=== PATIENT | male | born 1965 | race Two or more races ===

== ENCOUNTER 2018-07-01 16:15 | Emergency (ER) | payer OTHER, MEDICAID ==
[~2018-07-01] VITALS: Ht 172.7 cm; Wt 97.0 kg
[2018-07-01 20:34] VITALS: BP 160/112
== END 2018-07-01 20:35 | disposition home or self-care (01) ==
LOC: ER 16:15
DX: H61.23 Impacted cerumen, bilateral (principal); I10 Essential (primary) hypertension
CPT/HCPCS: 69209; 99282

== ENCOUNTER 2018-10-29 13:09 | Inpatient (IN) | payer MEDICAID, OTHER ==
[~2018-10-29] VITALS: Ht 170.2 cm; Wt 94.8 kg
[2018-10-29] MEDS ORDERED: CLONIDINE 0.2MG TABLET PO ONE (15:00)
[2018-10-29] MEDS ORDERED: MECLIZINE 25MG TABLET PO ONE (15:00)
[2018-10-29 15:27] LABS: BASOPHILS % 0.3 % (0.0-2.0); EOSINOPHILS % 0.3 % (0.0-5.0); HEMATOCRIT. 45.9 % (42.0-52.0); HEMOGLOBIN. 15.6 g/dL (14.0-18.0); LYMPHOCYTES % 19.5 % (20.0-50.0); MEAN CORPUSCULAR HEMOGLOBIN 30.3 pg (28.0-32.0); MEAN CORPUSCULAR VOLUME 89.4 fL (80.0-94.0); MEAN PLATELET VOLUME 10.5 fl (7.4-10.4); MONOCYTES % 4.5 % (2.0-8.0); NEUTROPHILS % 75.4 % (40.0-76.0); PLATELET 81 x1000/uL (130-400); RED BLOOD CELL COUNT 5.14 mill/uL (4.7-6.1); RED CELL DISTRIBUTION WIDTH 12.8 % (11.6-14.6)
[2018-10-29 15:32] LABS: CHLORIDE 102 mEq/L (98-107)
[2018-10-29 15:36] LABS: INR 1.1; PROTHROMBIN TIME 11.2 sec (9.1-11.1)
[2018-10-29] MEDS ORDERED: POTASSIUM CHLORIDE 20MEQ TABLET SR PO ONE (17:15)
[2018-10-29] MEDS ORDERED: MECLIZINE 25MG TABLET PO PRN (18:00)
[2018-10-29] MEDS ORDERED: ASPIRIN 325MG EC TABLET PO ONE (18:00)
[2018-10-29] MEDS ORDERED: ONDANSETRON HCL 4MG/2ML INJ IV PRN (18:00)
[2018-10-29] MEDS ORDERED: ACETAMINOPHEN 325MG TABLET PO PRN (18:00)
[2018-10-29 21:20] VITALS: BP 133/66
[2018-10-29 21:52] VITALS: BP 133/76
[2018-10-29] MEDS ORDERED: LISI-604 PO (22:00)
[2018-10-29] MEDS ORDERED: HYDR25TA PO (22:00)
[2018-10-29] MEDS ORDERED: INFLUENZA VIRUS VACCINE(AFLURIA) 0.5ML SYR IM ONE (22:15)
[2018-10-29] MEDS ORDERED: PNEUMOCOCCAL 23-VAL P-SAC VAC 0.5 ML IM ONE (22:15)
[2018-10-30] VITALS (7 sets, daily range): BP systolic 118–190; BP diastolic 78–123
[2018-10-30 00:17] LABS: CLARITY URINE CLEAR (CLEAR); COLOR URINE YELLOW (YELLOW); KETONES URINE NEGATIVE (NEGATIVE); LEUKOCYTE ESTERASE URINE NEGATIVE (NEGATIVE); NITRITE URINE NEGATIVE (NEGATIVE); OCCULT BLOOD URINE NEGATIVE (NEGATIVE); PH URINE 6.5 (4.5-8.0); PROTEIN URINE NEGATIVE (NEGATIVE); SPECIFIC GRAVITY URINE 1.016 (1.005-1.030); UROBILINOGEN URINE 0.2 E.U./dL (0.2-1.0)
[2018-10-30] MEDS: LISINOPRIL 40MG TABLET PO SCH ×2 (00:17→09:11)
[2018-10-30 00:44] LABS: PHENCYCLIDINE URINE SCREEN NEGATIVE (NEGATIVE)
[2018-10-30 00:45] LABS: *AMPHETAMINES SCREEN URINE NEGATIVE (NEGATIVE); *BARBITURATES SCREEN URINE NEGATIVE (NEGATIVE); *BENZODIAZEPINES SCREEN URINE NEGATIVE (NEGATIVE); *COCAINE SCREEN URINE NEGATIVE (NEGATIVE); CANNABINOID URINE SCREEN NEGATIVE (NEGATIVE); METHADONE URINE SCREEN NEGATIVE (NEGATIVE); OPIATES URINE SCREEN NEGATIVE (NEGATIVE)
[2018-10-30 06:57] LABS: BASOPHILS % 0.3 % (0.0-2.0); EOSINOPHILS % 2.3 % (0.0-5.0); HEMATOCRIT. 43.7 % (42.0-52.0); HEMOGLOBIN. 14.7 g/dL (14.0-18.0); LYMPHOCYTES % 33.3 % (20.0-50.0); MEAN CORPUSCULAR HEMOGLOBIN 30.3 pg (28.0-32.0); MEAN CORPUSCULAR VOLUME 90.3 fL (80.0-94.0); MEAN PLATELET VOLUME 10.3 fl (7.4-10.4); MONOCYTES % 8.7 % (2.0-8.0); NEUTROPHILS % 55.4 % (40.0-76.0); PLATELET 77 x1000/uL (130-400); RED BLOOD CELL COUNT 4.84 mill/uL (4.7-6.1); RED CELL DISTRIBUTION WIDTH 13.1 % (11.6-14.6)
[2018-10-30 07:30] LABS: CHLORIDE 103 mEq/L (98-107)
[2018-10-30] MEDS ORDERED: ASPIRIN 81MG TABLET PO SCH (09:00)
[2018-10-30] MEDS: CLONIDINE 0.1MG TABLET PO PRN ×2 (09:11→17:08)
[2018-10-30] MEDS ORDERED: POTASSIUM CHLORIDE 20MEQ TABLET SR PO NR (10:45)
[2018-10-30 19:43] LABS: ETHANOL BLOOD < 10 mg/dL
[2018-10-30 19:47] LABS: LDL CHOLESTEROL 99 mg/dL (5-100)
[2018-10-30 19:49] LABS: HDL CHOLESTEROL 24 mg/dL (40-59); T4 FREE 0.88 ng/dL (0.76-1.46)
[2018-10-30] MEDS ORDERED: IOHEXOL-350 100 ML BOTTLE ONE (19:56)
[2018-10-30 20:01] LABS: FOLIC ACID (FOLATE) SERUM 15.2 ng/mL (>5.38)
[2018-10-30] MEDS: ATORVASTATIN CALCIUM 20MG TABLET PO SCH (21:02)
[2018-10-31] VITALS: BP 131/74
[2018-10-31 04:00] VITALS: BP_SYST 144; BP_SYST 159; BP_SYST 173; BP_DIAS 103; BP_DIAS 87; BP_DIAS 91
[2018-10-31 08:00] VITALS: BP_SYST 161; BP_SYST 184; BP_SYST 187; BP_DIAS 103; BP_DIAS 107; BP_DIAS 94
[2018-10-31] MEDS ORDERED: CLOPIDOGREL 75MG TABLET PO SCH (09:00)
[2018-10-31] MEDS: CLONIDINE 0.1MG TABLET PO PRN ×2 (09:22→16:23)
[2018-10-31] MEDS: LISINOPRIL 40MG TABLET PO SCH (09:22)
[2018-10-31] MEDS: AMLODIPINE 5MG TABLET PO SCH ×2 (11:16→20:48)
[2018-10-31 11:29] LABS: BASOPHILS % 0.3 % (0.0-2.0); EOSINOPHILS % 1.8 % (0.0-5.0); HEMATOCRIT. 45.4 % (42.0-52.0); HEMOGLOBIN. 15.3 g/dL (14.0-18.0); MEAN CORPUSCULAR HEMOGLOBIN 30.3 pg (28.0-32.0); MEAN CORPUSCULAR VOLUME 89.7 fL (80.0-94.0); MEAN PLATELET VOLUME 9.9 fl (7.4-10.4); MONOCYTES % 7.1 % (2.0-8.0); NEUTROPHILS % 63.8 % (40.0-76.0); PLATELET 88 x1000/uL (130-400); RED BLOOD CELL COUNT 5.06 mill/uL (4.7-6.1); RED CELL DISTRIBUTION WIDTH 13.1 % (11.6-14.6)
[2018-10-31 11:35] LABS: CHLORIDE 108 mEq/L (98-107)
[2018-10-31 12:00] VITALS: BP 148/90
[2018-10-31] MEDS ORDERED: CYANOCOBALAMIN 1000MCG/ML VIAL IM NR (15:15)
[2018-10-31 16:00] VITALS: BP 167/93
[2018-10-31 20:00] VITALS: BP_SYST 128; BP_SYST 167; BP_SYST 186; BP_DIAS 111; BP_DIAS 124; BP_DIAS 96
[2018-10-31] MEDS: ATORVASTATIN CALCIUM 20MG TABLET PO SCH (20:48)
[2018-10-31] MEDS: HYDRALAZINE HCL 50MG TABLET PO SCH (20:48)
[2018-11-01] VITALS (7 sets, daily range): BP systolic 134–182; BP diastolic 81–125
[2018-11-01 07:00] LABS: CHLORIDE 108 mEq/L (98-107)
[2018-11-01 07:16] LABS: CREATINE KINASE 87 IU/L (39-308)
[2018-11-01 07:19] LABS: BASOPHILS % 0.4 % (0.0-2.0); EOSINOPHILS % 3.5 % (0.0-5.0); HEMATOCRIT. 43.4 % (42.0-52.0); MEAN CORPUSCULAR HEMOGLOBIN 30.9 pg (28.0-32.0); MEAN CORPUSCULAR VOLUME 89.3 fL (80.0-94.0); MEAN PLATELET VOLUME 10.5 fl (7.4-10.4); MONOCYTES % 9.1 % (2.0-8.0); PLATELET 82 x1000/uL (130-400); RED BLOOD CELL COUNT 4.86 mill/uL (4.7-6.1); RED CELL DISTRIBUTION WIDTH 12.6 % (11.6-14.6)
[2018-11-01 07:23] LABS: CREATINE KINASE MB FRACTION 1.7 ng/mL (0.5-3.6)
[2018-11-01] MEDS: AMLODIPINE 5MG TABLET PO SCH ×2 (08:59→21:29)
[2018-11-01] MEDS: LISINOPRIL 40MG TABLET PO SCH (09:00)
[2018-11-01] MEDS: HYDRALAZINE HCL 50MG TABLET PO SCH (09:00)
[2018-11-01] MEDS: CLONIDINE 0.1MG TABLET PO PRN (11:52)
[2018-11-01] MEDS: CLOPIDOGREL 75MG TABLET PO SCH (18:01)
[2018-11-01] MEDS: HYDRALAZINE HCL 100MG TABLET PO SCH (21:29)
[2018-11-01] MEDS: ATORVASTATIN CALCIUM 20MG TABLET PO SCH (21:29)
[2018-11-02] VITALS: BP_SYST 118; BP_SYST 135; BP_SYST 137; BP_DIAS 79; BP_DIAS 84; BP_DIAS 89
[2018-11-02 04:00] VITALS: BP 127/82
[2018-11-02 07:42] LABS: BASOPHILS % 0.3 % (0.0-2.0); EOSINOPHILS % 3.9 % (0.0-5.0); HEMATOCRIT. 42.6 % (42.0-52.0); HEMOGLOBIN. 14.3 g/dL (14.0-18.0); LYMPHOCYTES % 35.1 % (20.0-50.0); MEAN CORPUSCULAR HEMOGLOBIN 30.4 pg (28.0-32.0); MEAN CORPUSCULAR VOLUME 90.5 fL (80.0-94.0); MEAN PLATELET VOLUME 10.2 fl (7.4-10.4); NEUTROPHILS % 50.7 % (40.0-76.0); PLATELET 80 x1000/uL (130-400); RED BLOOD CELL COUNT 4.71 mill/uL (4.7-6.1); RED CELL DISTRIBUTION WIDTH 13.1 % (11.6-14.6)
[2018-11-02 08:00] VITALS: BP 125/92
[2018-11-02 08:02] LABS: CHLORIDE 106 mEq/L (98-107)
[2018-11-02] MEDS: CLOPIDOGREL 75MG TABLET PO SCH (09:34)
[2018-11-02] MEDS: AMLODIPINE 5MG TABLET PO SCH (09:34)
[2018-11-02] MEDS: HYDRALAZINE HCL 100MG TABLET PO SCH (09:34)
[2018-11-02] MEDS: LISINOPRIL 40MG TABLET PO SCH (09:35)
[2018-11-02 12:00] VITALS: BP 154/88
[2018-11-02 13:06] LABS: ANTI-CARDIOLIPIN AB IGA < 9 APL U/mL (0-11); ANTI-CARDIOLIPIN AB IGG < 9 GPL U/mL (0-14); ANTI-CARDIOLIPIN AB IGM < 9 MPL U/mL (0-12)
[2018-11-02 16:00] VITALS: BP 145/89
[2018-11-02 17:22] VITALS: BP 145/80
[2018-11-03 04:14] LABS: ANTI-THROMBIN ACTIVITY 85 % (75-135); DRVVT LA 32.4 sec (0.0-47.0); LUPUS ANTICOAG INTERPRETATION Comment: (.); PROTEIN C FUNCTIONAL 97 % (73-180); PTT-LA 31.1 sec (0.0-51.9)
== END 2018-11-02 19:25 | disposition short-term general hospital (02) | DRG 45 ==
LOC: ER 13:09 → 5WST 17:56 → ENRESERV 20:01
PROVIDERS: ADMIT Internal Medicine; ATTEND Internal Medicine
DX: I63.9 Cerebral infarction, unspecified (principal); D69.3 Immune thrombocytopenic purpura; D69.6 Thrombocytopenia, unspecified; I11.9 Hypertensive heart disease without heart failure; G81.91 Hemiplegia, unspecified affecting right dominant side; R13.10 Dysphagia, unspecified; R47.01 Aphasia; E78.00 Pure hypercholesterolemia, unspecified; H55.00 Unspecified nystagmus; I45.10 Unspecified right bundle-branch block; E87.6 Hypokalemia; E66.9 Obesity, unspecified; E78.5 Hyperlipidemia, unspecified; I16.0 Hypertensive urgency; H51.8 Other specified disorders of binocular movement; H53.2 Diplopia; H54.7 Unspecified visual loss; H93.19 Tinnitus, unspecified ear; R29.810 Facial weakness; Z68.32 Body mass index [BMI] 32.0-32.9, adult; Z91.81 History of falling
CPT/HCPCS: 36415; 70496; 70498; 70551; 71045; 80048; 80061; 80305; 80320; 81400; 81403; 81407; 81479; 82550; 82553; 82607; 82746; 83036; 83735; 83880; 84439; 84443; 84481; 84484; 85300; 85303; 85306; 85613; 85732; 86147; 90732; 93005; 93306; 93880; 93970; 97112; 97162; 97166; 97530; 97535; 99285; J3420; J8597; Q9967; G0480

== ENCOUNTER 2019-01-15 08:33 | Emergency (ER) | payer MEDICAID ==
[~2019-01-15] VITALS: Ht 172.7 cm; Wt 88.0 kg
[~2019-01-15 08:33] MED LIST: HYDR25TA PO; LISI-604 PO
[2019-01-15 09:05] VITALS: BP 161/115
[2019-01-15] MEDS ORDERED: HYDROCODONE/ACETAMINOPHEN 5/325MG TABLET PO ONE (11:00)
== END 2019-01-15 11:24 | disposition home or self-care (01) ==
LOC: ER 08:33
DX: S83.242A Other tear of medial meniscus, current injury, left knee, initial encounter (principal); I10 Essential (primary) hypertension; E03.9 Hypothyroidism, unspecified; Z79.01 Long term (current) use of anticoagulants; Y92.018 Other place in single-family (private) house as the place of occurrence of the external cause; X50.1XXA Overexertion from prolonged static or awkward postures, initial encounter; Z79.899 Other long term (current) drug therapy; Y99.8 Other external cause status; Z86.73 Personal history of transient ischemic attack (TIA), and cerebral infarction without residual deficits; Y93.01 Activity, walking, marching and hiking
CPT/HCPCS: 73562; 99283

== ENCOUNTER 2020-03-23 10:02 | Inpatient (IN) | payer MEDICAID ==
[~2020-03-23] VITALS: Ht 172.7 cm; Wt 95.3 kg
[2020-03-23] MEDS ORDERED: ACETAMINOPHEN WITH CODEINE 300/30MG TABLET PO ONE (10:30)
[2020-03-23 11:28] LABS: BASOPHILS % 0.4 % (0.0-2.0); HEMATOCRIT. 37.5 % (42.0-52.0); HEMOGLOBIN. 12.8 g/dL (14.0-18.0); LYMPHOCYTES % 24.3 % (20.0-50.0); MEAN CORPUSCULAR HEMOGLOBIN 30.2 pg (28.0-32.0); MEAN CORPUSCULAR VOLUME 88.4 fL (80.0-94.0); MEAN PLATELET VOLUME 8.9 fl (7.4-10.4); MONOCYTES % 8.8 % (2.0-8.0); NEUTROPHILS % 64.5 % (40.0-76.0); PLATELET 150 x1000/uL (130-400); RED BLOOD CELL COUNT 4.24 mill/uL (4.7-6.1); RED CELL DISTRIBUTION WIDTH 12.7 % (11.6-14.6)
[2020-03-23 11:37] LABS: CHLORIDE 106 mEq/L (98-107)
[2020-03-23 12:13] LABS: PARTIAL THROMBOPLASTIN TIME 47.2 sec (23.4-31.0); PROTHROMBIN TIME 70.7 sec (9.6-11.0)
[2020-03-23 12:20] LABS: INR 7.5
[2020-03-23] MEDS ORDERED: PHYTONADIONE 5 MG in DEXTROSE 5% WATER 50 ML IV ONE (12:45)
[2020-03-23] MEDS ORDERED: IOHEXOL-300 100 ML BOTTLE ONE (13:51)
[2020-03-23] MEDS ORDERED: LORAZEPAM 2MG/ML CPJ IV PRN (15:15)
[2020-03-23] MEDS ORDERED: NA PHOS,M-B/NA PHOS,DI-BA ENEMA 118ML PR PRN (15:15)
[2020-03-23] MEDS ORDERED: MAGNESIUM/ALUMINUM HYDROXIDE/SIMETHICONE 30ML UDC PO PRN (15:15)
[2020-03-23] MEDS ORDERED: DIPHENHYDRAMINE 50MG/ML VIAL IV PRN (15:15)
[2020-03-23] MEDS ORDERED: IPRATROPIUM/ALBUTEROL 0.5-3(2.5)MG/3ML NEB NEB PRN (15:15)
[2020-03-23] MEDS ORDERED: GUAIFENESIN 200MG/10ML SUGAR FREE UDC PO PRN (15:15)
[2020-03-23] MEDS ORDERED: HYDROCODONE/ACETAMINOPHEN 10/325MG TABLET PO PRN (15:15)
[2020-03-23] MEDS ORDERED: DOCUSATE SODIUM 100MG CAPSULE PO PRN (15:15)
[2020-03-23] MEDS ORDERED: ONDANSETRON HCL 4MG/2ML INJ IV PRN (15:15)
[2020-03-23] MEDS ORDERED: MORPHINE SULFATE 2 MG/ML CPJ (NOT FOR IM USE) IV PRN (15:15)
[2020-03-23] MEDS ORDERED: CLONIDINE 0.1MG TABLET PO PRN (15:15)
[2020-03-23 16:52] LABS: CHLORIDE 104 mEq/L (98-107)
[2020-03-23 20:00] VITALS: BP 135/89
[2020-03-24] VITALS: BP 104/70
[2020-03-24 04:00] VITALS: BP 100/70
[2020-03-24 07:07] LABS: BASOPHILS % 0.4 % (0.0-2.0); EOSINOPHILS % 3.5 % (0.0-5.0); HEMATOCRIT. 37.3 % (42.0-52.0); HEMOGLOBIN. 12.8 g/dL (14.0-18.0); LYMPHOCYTES % 28.3 % (20.0-50.0); MEAN CORPUSCULAR HEMOGLOBIN 30.6 pg (28.0-32.0); MEAN CORPUSCULAR VOLUME 89.1 fL (80.0-94.0); MEAN PLATELET VOLUME 9.4 fl (7.4-10.4); MONOCYTES % 9.2 % (2.0-8.0); NEUTROPHILS % 58.6 % (40.0-76.0); PLATELET 152 x1000/uL (130-400); RED BLOOD CELL COUNT 4.18 mill/uL (4.7-6.1); RED CELL DISTRIBUTION WIDTH 12.7 % (11.6-14.6)
[2020-03-24 07:20] LABS: CHLORIDE 103 mEq/L (98-107)
[2020-03-24 07:29] LABS: LDL CHOLESTEROL 77 mg/dL (5-100)
[2020-03-24 07:30] LABS: HDL CHOLESTEROL 18 mg/dL (40-59); T4 FREE 1.07 ng/dL (0.76-1.46)
[2020-03-24 08:00] VITALS: BP 118/76
[2020-03-24 12:00] VITALS: BP 113/69
[2020-03-24] MEDS ORDERED: CLONIDINE 0.1MG TABLET PO PRN (13:15)
[2020-03-24] MEDS ORDERED: MORPHINE SULFATE 2 MG/ML CPJ (NOT FOR IM USE) IV PRN (13:15)
[2020-03-24] MEDS ORDERED: DOCUSATE SODIUM 100MG CAPSULE PO PRN (13:15)
[2020-03-24] MEDS ORDERED: LORAZEPAM 2MG/ML CPJ IV PRN (13:15)
[2020-03-24] MEDS ORDERED: MAGNESIUM/ALUMINUM HYDROXIDE/SIMETHICONE 30ML UDC PO PRN (13:15)
[2020-03-24] MEDS ORDERED: GUAIFENESIN 200MG/10ML SUGAR FREE UDC PO PRN (13:15)
[2020-03-24] MEDS ORDERED: HYDROCODONE/ACETAMINOPHEN 10/325MG TABLET PO PRN (13:15)
[2020-03-24] MEDS ORDERED: ONDANSETRON HCL 4MG/2ML INJ IV PRN (13:15)
[2020-03-24] MEDS ORDERED: DIPHENHYDRAMINE 50MG/ML VIAL IV PRN ×2 (13:15)
[2020-03-24] MEDS ORDERED: IPRATROPIUM/ALBUTEROL 0.5-3(2.5)MG/3ML NEB NEB PRN (13:15)
[2020-03-24 15:02] LABS: INR 1.8; PROTHROMBIN TIME 18.1 sec (9.6-11.0)
[2020-03-24 16:00] VITALS: BP 111/68
[2020-03-24 20:00] VITALS: BP 116/77
[2020-03-25] VITALS: BP 102/68
[2020-03-25 04:00] VITALS: BP 106/70
[2020-03-25 07:34] LABS: INR 1.6; PROTHROMBIN TIME 16.9 sec (9.6-11.0)
[2020-03-25 08:00] VITALS: BP 122/82
[2020-03-25 12:00] VITALS: BP 119/70
[2020-03-25 14:57] VITALS: BP 119/70
== END 2020-03-25 15:20 | disposition home or self-care (01) | DRG 384 ==
LOC: ER 10:02 → 6EST 15:07 → ENRESERV 16:16 → ER 17:52
PROVIDERS: ADMIT Internal Medicine; ATTEND Internal Medicine
DX: S70.01XA Contusion of right hip, initial encounter (principal); D68.9 Coagulation defect, unspecified; G81.91 Hemiplegia, unspecified affecting right dominant side; E78.5 Hyperlipidemia, unspecified; D64.9 Anemia, unspecified; E03.9 Hypothyroidism, unspecified; I10 Essential (primary) hypertension; W18.39XA Other fall on same level, initial encounter; Y93.89 Activity, other specified; Z79.02 Long term (current) use of antithrombotics/antiplatelets; Z86.73 Personal history of transient ischemic attack (TIA), and cerebral infarction without residual deficits; Y92.89 Other specified places as the place of occurrence of the external cause; Y99.8 Other external cause status; Z79.899 Other long term (current) drug therapy
CPT/HCPCS: 36415; 72193; 80048; 80053; 80061; 80076; 84439; 84443; 85025; 97162; 97535; 99285; J3430; J7060; Q9967

== ENCOUNTER 2021-08-06 02:30 | Emergency (ER) | payer MEDICARE, MEDICAID ==
[~2021-08-06] VITALS: Ht 172.7 cm; Wt 94.4 kg
[~2021-08-06 02:30] MED LIST changes: -LISI-604 PO; +LISI20TA31 PO
[2021-08-06 03:11] LABS: BASOPHILS % 0.6 % (0.0-2.0); EOSINOPHILS % 2.1 % (0.0-5.0); HEMATOCRIT. 45.3 % (42.0-52.0); LYMPHOCYTES % 36.6 % (20.0-50.0); MEAN CORPUSCULAR HEMOGLOBIN 31.4 pg (28.0-32.0); MEAN PLATELET VOLUME 10.2 fl (7.4-10.4); MONOCYTES % 9.3 % (2.0-8.0); NEUTROPHILS % 51.4 % (40.0-76.0); PLATELET 98 x1000/uL (130-400); RED BLOOD CELL COUNT 5.09 mill/uL (4.7-6.1); RED CELL DISTRIBUTION WIDTH 12.8 % (11.6-14.6)
[2021-08-06 03:19] LABS: CHLORIDE 107 mEq/L (98-107)
[2021-08-06 04:44] LABS: ETHANOL BLOOD < 10 mg/dL
[2021-08-06 07:05] VITALS: BP 145/99
[2021-08-06] MEDS ORDERED: IOHEXOL-350 100 ML BOTTLE ONE (07:05)
== END 2021-08-06 07:12 | disposition home or self-care (01) ==
LOC: ER 02:30
DX: R68.83 Chills (without fever) (principal); I10 Essential (primary) hypertension; I69.351 Hemiplegia and hemiparesis following cerebral infarction affecting right dominant side
CPT/HCPCS: 36415; 70450; 70496; 70498; 80053; 80320; 83605; 84484; 85025; 93005; 99285; Q9967; G0480